=== PATIENT | female | born 1950 | race Caucasian/White ===

== ENCOUNTER → 2019-06-20 | Outpatient (CLI) | payer MEDICARE ==
[~2019-06-20] MED LIST: ASPI325T8 PO; BACL10TA PO; ESTR0.5T PO; FLUT16SP2 NS; HYDR1TAB20 PO; MEDR2.5T28 PO; MELO7.5T29 PO; ONDA4TAB7 PO; TRIA1CAP3 PO
--- NOTE | 2019-06-20 10:48 | RAD ---
EXAM: CHEST PA LATERAL INDICATION: Cough. TECHNIQUE: PA and lateral views COMPARISON: 04/10/2013 chest x-ray FINDINGS: The heart size is normal. The great vessels appear unremarkable. There is no hilar or mediastinal mass. The lungs are clear. There is no pleural effusion or pneumothorax. Minimally displaced and incompletely healed left eighth posterior rib fracture is present. This is similar to prior. There is spinal fusion hardware with both the conrado and pedicle screw constructs as well as plate and screw constructs near the thoracolumbar junction on the left side. Similar lateral fusion hardware is present higher up in the mid thoracic spine. IMPRESSION: No active cardiopulmonary disease. Electronically signed by: Ermelinda Barnett MD (06/20/2019 10:45 AM) [id number]
== END | disposition home or self-care (01) ==
LOC: RAD 10:03
PROVIDERS: ATTEND Physician Assistant Medical
DX: R05 Cough (principal); Z98.1 Arthrodesis status
CPT/HCPCS: 71046